=== PATIENT | male | born 1955 | race Caucasian/White ===

== ENCOUNTER 2016-05-15 12:28 | Inpatient (IN) | payer OTHER ==
[~2016-05-15] VITALS: Ht 177.8 cm; Wt 54.4 kg
[2016-05-15 12:59] LABS: HEMOGLOBIN 15.4 gm/dl (14.0-17.5); RED BLOOD COUNT 4.65 M/UL (4.20-5.50); WHITE BLOOD COUNT 19.7 K/UL (4.5-11.0)
[2016-05-15] MEDS ORDERED: LISINOPRIL10 MG PO (17:23)
[2016-05-15] MEDS ORDERED: METOPROLOL SUCC50 MG PO (17:24)
[2016-05-15] MEDS ORDERED: ALL DAY ALLERGY10 M3 PO (17:26)
[2016-05-15] MEDS ORDERED: ATORVASTATIN CA40 MG PO (17:27)
[2016-05-15] MEDS ORDERED: LEVEMIR100 UNIT/1 SQ ×2 (17:28)
[2016-05-15] MEDS ORDERED: HUMALOG100 UNIT/1 SQ ×2 (17:29→17:30)
[2016-05-16 00:42] LABS: BUN/CREATININE RATIO 21 (0-10)
[2016-05-16 06:08] LABS: HEMOGLOBIN 14.2 gm/dl (14.0-17.5); RED BLOOD COUNT 4.26 M/UL (4.20-5.50)
[2016-05-16 06:27] LABS: BUN/CREATININE RATIO 26 (0-10)
[2016-05-16 13:25] LABS: BUN/CREATININE RATIO 26 (0-10)
[2016-05-16 22:29] LABS: BUN/CREATININE RATIO 17 (0-10)
== END 2016-05-17 03:25 | disposition left against medical advice (07) | DRG 280 ==
LOC: ER1 12:28 → ZEROF 14:50 → CCU 14:50
PROVIDERS: Emergency Medicine; ADMIT Hospitalist
PROC: 4A033BC Measurement of Arterial Pressure, Coronary, Percutaneous Approach (ICD-10-PCS; principal; 2016-05-16)
PROC: 4A033BC Measurement of Arterial Pressure, Coronary, Percutaneous Approach (ICD-10-PCS; 2016-05-16)
PROC: 4A023N7 Measurement of Cardiac Sampling and Pressure, Left Heart, Percutaneous Approach (ICD-10-PCS; 2016-05-16)
PROC: B2111ZZ Fluoroscopy of Multiple Coronary Arteries using Low Osmolar Contrast (ICD-10-PCS; 2016-05-16)
DX: I21.4 Non-ST elevation (NSTEMI) myocardial infarction (principal); E13.10 Other specified diabetes mellitus with ketoacidosis without coma; T82.855A Stenosis of coronary artery stent, initial encounter; Y71.1 Therapeutic (nonsurgical) and rehabilitative cardiovascular devices associated with adverse incidents; I25.119 Atherosclerotic heart disease of native coronary artery with unspecified angina pectoris; I10 Essential (primary) hypertension; E78.5 Hyperlipidemia, unspecified; D72.829 Elevated white blood cell count, unspecified; F17.210 Nicotine dependence, cigarettes, uncomplicated; I25.2 Old myocardial infarction; Z72.3 Lack of physical exercise; Z72.89 Other problems related to lifestyle; Z82.49 Family history of ischemic heart disease and other diseases of the circulatory system; Z79.4 Long term (current) use of insulin; Z79.899 Other long term (current) drug therapy; Z91.041 Radiographic dye allergy status; Z98.890 Other specified postprocedural states
CPT/HCPCS: ECHO; 36415; 36600; 71010; 80048; 80053; 81003; 82009; 82550; 82553; 82803; 82962; 83036; 83874; 84439; 84443; 84484; 85025; 85027; 85347; 85610; 85730; 93005; 93306; 93571; 93572; 96361; 96374; 96375; 99285; C1769; C1887; C1894; C9113; J0153; J0461; J0583; J1200; J1644; J1720; J1815; J2250; J2270; J2405; J2930; J3010; J7030; J7040; J7050; Q9963